=== PATIENT | male | born 1955 | race Caucasian/White ===

== ENCOUNTER 2017-10-26 05:02 | Emergency (ER) | payer MEDICAID ==
[2017-10-26 05:03] VITALS: BMI 43.8
[2017-10-26 05:16] VITALS: RESP 18; TEMP 97.5
--- NOTE | 2017-10-26 05:50 | ED PDOC ---
Arrival/HPI - General Chief Complaint: High Blood Pressure Time Seen by Provider: 10/26/17 05:25 Historian: Patient - History of Present Illness Narrative History of Present Illness (Text): 10/26/17 05:45 61 year old male, whose past medical history includes hypertension, presents to the Emergency department complaining of elevated blood pressure noted this am. Patient states he noted when taking his blood pressure that it was elevated ~ 180 systolic. Patient is on Lisinpril medication which he had subsequently taken this time a few hrs earlier than he normally does. Patient denies any fevers, chills, chest pain, shortness of breath, abdominal pain, nausea, vomiting, diarrhea, back pain, neck pain, urinary/bowel changes, headache, dizziness, or any other complaint. Time/Duration: Other (this evening) Symptom Onset: Sudden Symptom Course: Unchanged Context: Home Past Medical History - Provider Review Nursing Documentation Reviewed: Yes - Infectious Disease Hx of Infectious Diseases: None - Tetanus Immunization Tetanus Immunization: Unknown - Past Medical History Past Medical History: No Previous - Cardiac Hx Cardiac Disorders: Yes Hx Hypertension: Yes - Pulmonary Hx Respiratory Disorders: No - Neurological Hx Neurological Disorder: No - HEENT Hx HEENT Disorder: No - Renal Hx Renal Disorder: No - Endocrine/Metabolic Hx Endocrine Disorders: No - Hematological/Oncological Hx Blood Disorders: No - Integumentary Hx Dermatological Disorder: No - Musculoskeletal/Rheumatological Hx Musculoskeletal Disorders: No Hx Falls: No - Gastrointestinal Hx Gastrointestinal Disorders: No - Genitourinary/Gynecological Hx Genitourinary Disorders: No - Psychiatric Hx Psychophysiologic Disorder: No Hx Depression: No Hx Emotional Abuse: No Hx Physical Abuse: No Hx Substance Use: No - Surgical History Hx Appendectomy: Yes Other/Comment: hernia repair - Anesthesia Hx Anesthesia: Yes Hx Anesthesia Reactions: No Hx Malignant Hyperthermia: No - Suicidal Assessment Feels Threatened In Home Enviroment: No Family/Social History - Physician Review Nursing Documentation Reviewed: Yes Family/Social History: No Known Family HX Smoking Status: Former Smoker Hx Alcohol Use: No Hx Substance Use: No Hx Substance Use Treatment: No Allergies/Home Meds Allergies/Adverse Reactions: Allergies No Known Allergies Allergy (Verified 01/18/17 15:05) Home Medications: Home Meds Medication Instructions Recorded Confirmed Lisinopril [Zestril] 10 mg PO DAILY 10/24/15 01/28/18 Aspirin [Aspirin Chewable] 81 mg PO DAILY 06/29/16 10/26/17 Review of Systems - Physician Review All systems were reviewed & negative as marked: Yes - Review of Systems Constitutional: absent: Fevers, Other (Chills) Respiratory: absent: SOB Cardiovascular: absent: Chest Pain Gastrointestinal: absent: Abdominal Pain, Diarrhea, Nausea, Vomiting Genitourinary Male: absent: Dysuria, Frequency, Hematuria Musculoskeletal: absent: Back Pain, Neck Pain Neurological: absent: Headache, Dizziness Physical Exam Vital Signs Reviewed: Yes Vital Signs Temp Pulse Resp BP Pulse Ox 10/26/17 06:25 63 18 150/85 97 10/26/17 05:54 162/108 H 10/26/17 05:16 97.5 F L 65 18 162/108 H 98 Temperature: Afebrile Blood Pressure: Hypertensive Pulse: Regular Respiratory Rate: Normal Appearance: Positive for: Well-Appearing, Non-Toxic, Comfortable Pain Distress: None Mental Status: Positive for: Alert and Oriented X 3 - Systems Exam Head: Present: Atraumatic, Normocephalic Pupils: Present: PERRL Extroacular Muscles: Present: EOMI Conjunctiva: Present: Normal Mouth: Present: Moist Mucous Membranes Neck: Present: Normal Range of Motion Respiratory/Chest: Present: Clear to Auscultation, Good Air Exchange. No: Respiratory Distress, Accessory Muscle Use Cardiovascular: Present: Regular Rate and Rhythm, Normal S1, S2. No: Murmurs Abdomen: Present: Normal Bowel Sounds. No: Tenderness, Distention, Peritoneal Signs Back: Present: Normal Inspection Upper Extremity: Present: Normal Inspection. No: Cyanosis, Edema Lower Extremity: Present: Normal Inspection. No: Edema Neurological: Present: GCS=15, CN II-XII Intact, Speech Normal Skin: Present: Warm, Dry, Normal Color. No: Rashes Psychiatric: Present: Alert, Oriented x 3, Normal Insight, Normal Concentration Medical Decision Making ED Course and Treatment: 10/26/17 05:46 Impression: 61 year old male presents complaining of elevated blood pressure. Plan: -- Catapres -- Reassess and disposition - Medication Orders Current Medication Orders: Discontinued Medications Clonidine HCl (Catapres) 0.2 mg PO STAT STA Stop: 10/26/17 05:47 Last Admin: 10/26/17 05:54 Dose: 0.2 mg MAR Pulse and Blood Pressure Document 10/26/17 05:54 PAUL (Rec: 10/26/17 05:54 [facility] [id number]) Blood Pressure Blood Pressure (100/60-150/90 mm Hg) 162/108 - Scribe Statement The provider has reviewed the documentation as recorded by the Abidaibe Day Aleman Provider Scribe Attestation: All medical record entries made by the Scribe were at my direction and personally dictated by me. I have reviewed the chart and agree that the record accurately reflects my personal performance of the history, physical exam, medical decision making, and the department course for this patient. I have also personally directed, reviewed, and agree with the discharge instructions and disposition. Disposition/Present on Arrival - Present on Arrival Any Indicators Present on Arrival: No History of DVT/PE: No History of Uncontrolled Diabetes: No Urinary Catheter: No History of Decub. Ulcer: No History Surgical Site Infection Following: None - Disposition Have Diagnosis and Disposition been Completed?: Yes Diagnosis: Chronic hypertension Disposition: HOME/ ROUTINE Disposition Time: 06:30 Patient Plan: Discharge Condition: GOOD Discharge Instructions (ExitCare): Chronic Hypertension (ED) Additional Instructions: Take your medication as prescribed/follow up with your doctor this week /if any symptoms(headache/dizziness/persistent elevated blood pressure/ecc.)return to the emergency room Forms: [employer] (Paraguayan)
[2017-10-26 06:26] VITALS: BP 150/85; PULSE 63; O2SAT 97
== END 2017-10-26 06:42 | disposition home or self-care (01) ==
LOC: ED 05:02
DX: I10 Essential (primary) hypertension (principal); Z87.891 Personal history of nicotine dependence

== ENCOUNTER 2018-03-17 20:37 | Emergency (ER) | payer SELFPAY ==
[2018-03-17 21:12] VITALS: BMI 39.1
[2018-03-17 21:17] VITALS: BP 138/91; PULSE 76; RESP 19; TEMP 98.2; O2SAT 96
[2018-03-17] MEDS: Tetracaine 0.5% Ophth 2 ML BOTTLE OS STA (21:33)
--- NOTE | 2018-03-17 21:36 | ED PDOC ---
Arrival/HPI - General Chief Complaint: Eye Problem Time Seen by Provider: 03/17/18 21:33 Historian: Patient - History of Present Illness Narrative History of Present Illness (Text): 03/17/18 21:34 62yo male who present with complaint of right eye pain, tearing, redness. States it felt like something went into his right eye, while waiting at a bus stop. States the eye feels irritated. He denies visual acuity changes, photophobia, any other complaint. Past Medical History - Provider Review Nursing Documentation Reviewed: Yes - Infectious Disease Hx of Infectious Diseases: None - Tetanus Immunization Tetanus Immunization: Unknown - Past Medical History Past Medical History: No Previous - Cardiac Hx Cardiac Disorders: Yes Hx Hypertension: Yes - Pulmonary Hx Respiratory Disorders: No - Neurological Hx Neurological Disorder: No - HEENT Hx HEENT Disorder: No - Renal Hx Renal Disorder: No - Endocrine/Metabolic Hx Endocrine Disorders: No - Hematological/Oncological Hx Blood Disorders: No - Integumentary Hx Dermatological Disorder: No - Musculoskeletal/Rheumatological Hx Musculoskeletal Disorders: No Hx Falls: No - Gastrointestinal Hx Gastrointestinal Disorders: No - Genitourinary/Gynecological Hx Genitourinary Disorders: No - Psychiatric Hx Psychophysiologic Disorder: No Hx Substance Use: No - Surgical History Hx Appendectomy: Yes Other/Comment: hernia repair - Anesthesia Hx Anesthesia: Yes Hx Anesthesia Reactions: No Hx Malignant Hyperthermia: No - Suicidal Assessment Feels Threatened In Home Enviroment: No Family/Social History - Physician Review Nursing Documentation Reviewed: Yes Family/Social History: Unknown Family HX Smoking Status: Former Smoker Hx Alcohol Use: No Hx Substance Use: No Hx Substance Use Treatment: No Allergies/Home Meds Allergies/Adverse Reactions: Allergies Penicillins Allergy (Verified 03/17/18 21:12) RASH Home Medications: Home Meds Medication Instructions Recorded Confirmed Lisinopril [Zestril] 10 mg PO DAILY 07/22/15 03/17/18 Aspirin [Aspirin Chewable] 81 mg PO DAILY 06/29/16 03/17/18 Review of Systems - Physician Review All systems were reviewed & negative as marked: Yes - Review of Systems Constitutional: Normal Eyes: Eye Pain (right eye) ENT: Normal Respiratory: Normal Cardiovascular: Normal Gastrointestinal: Normal Genitourinary Male: Normal Musculoskeletal: Normal Skin: Normal Neurological: Normal Endocrine: Normal Hemo/Lymphatic: Normal Psychiatric: Normal Physical Exam Vital Signs Reviewed: Yes Vital Signs Temp Pulse Resp BP Pulse Ox 03/17/18 21:16 98.2 F 76 19 138/91 H 96 Temperature: Afebrile Blood Pressure: Normal Pulse: Regular Respiratory Rate: Normal Appearance: Positive for: Well-Appearing, Non-Toxic, Comfortable Pain Distress: None Mental Status: Positive for: Alert and Oriented X 3 - Systems Exam Head: Present: Atraumatic, Normocephalic Pupils: Present: PERRL Extroacular Muscles: Present: EOMI Conjunctiva: Present: Icteric (Pinkish right conjunctiva), Other (No florescin uptake) Mouth: Present: Moist Mucous Membranes Neck: Present: Normal Range of Motion Respiratory/Chest: Present: Clear to Auscultation, Good Air Exchange. No: Respiratory Distress, Accessory Muscle Use Cardiovascular: Present: Regular Rate and Rhythm, Normal S1, S2. No: Murmurs Abdomen: No: Tenderness, Distention, Peritoneal Signs Back: Present: Normal Inspection Upper Extremity: Present: Normal Inspection. No: Cyanosis, Edema Lower Extremity: Present: Normal Inspection. No: Edema Neurological: Present: GCS=15, CN II-XII Intact, Speech Normal Skin: Present: Warm, Dry, Normal Color. No: Rashes Psychiatric: Present: Alert, Oriented x 3, Normal Insight, Normal Concentration Medical Decision Making - Medication Orders Current Medication Orders: Discontinued Medications Tetracaine HCl (Tetracaine 0.5% Ophth Soln) 2 drop OS STAT STA Stop: 03/17/18 21:34 Disposition/Present on Arrival - Present on Arrival Any Indicators Present on Arrival: No History of DVT/PE: No History of Uncontrolled Diabetes: No Urinary Catheter: No History of Decub. Ulcer: No History Surgical Site Infection Following: None - Disposition Have Diagnosis and Disposition been Completed?: Yes Diagnosis: Eye irritation Disposition: HOME/ ROUTINE Disposition Time: 21:50 Patient Plan: Discharge Condition: STABLE Discharge Instructions (ExitCare): Conjunctivitis (Noninfectious Pinkeye) Additional Instructions: Follow up with your doctor/Molding Machine Setter Return to ED for any new or worsening symptoms Prescriptions: Tobramycin 0.3% [Tobrex 0.3% Ophth Soln] 2 drop OD Q3 #1 bottle Referrals: Jeoy Kapoor MD [Staff Provider] - Follow up with primary Forms: [employer] (Romanian)
== END 2018-03-17 21:49 | disposition home or self-care (01) ==
LOC: ED 20:37
DX: H57.8 Other specified disorders of eye and adnexa (principal)

== ENCOUNTER 2018-07-14 08:44 | Emergency (ER) | payer SELFPAY ==
[2018-07-14 08:45] VITALS: BMI 39.1
[2018-07-14 08:56] VITALS: RESP 18; TEMP 98; O2SAT 97
--- NOTE | 2018-07-14 09:24 | ED PDOC ---
Arrival/HPI - History of Present Illness Narrative History of Present Illness (Text): 07/14/18 09:16 Pt is a 62 yo M with pmhx of HTN who presents for R headache and HTN. Pt states that this AM his BP was 185/110 recorded at home. He also noticed a headache which he has been having since Friday and also states that it is related to the flu symptoms that he has been having since last week. He states that he had a similar episode last year when he also had the flu and then proceeded to have a bad headache. She states that he is compliant with his BP medications and took a dose this AM before coming to the ED. He states that the pain is 10/10 in intensity that is non-radiating. He denies any numbness, tingling, focal weakness, chest pain, SOB, cough, abd pain. He does admit to headache, photophobia, nausea, dry cough, and dizziness. Pmhx: HTN Pshx: Appendectomy, hernia repair Meds: Lisinopril 40, ASA 81 All: Penicillin - dizzy, nausea Social: Denies tobacco use quit >20 years ago, denies etoh or drug abuse Fam: Denies Time/Duration: 1-3 hours Symptom Onset: Gradual Symptom Course: Improving Severity Level: 10 <Yuliana Gutierres - Last Filed: 07/14/18 14:18> - General Historian: Patient <Radha Selfil - Last Filed: 07/14/18 16:20> - General Time Seen by Provider: 07/14/18 08:46 Past Medical History - Provider Review Nursing Documentation Reviewed: Yes - Infectious Disease Hx of Infectious Diseases: None - Tetanus Immunization Tetanus Immunization: Unknown - Past Medical History Past Medical History: No Previous - Cardiac Hx Cardiac Disorders: Yes Hx Hypertension: Yes - Pulmonary Hx Respiratory Disorders: No - Neurological Hx Neurological Disorder: No - HEENT Hx HEENT Disorder: No - Renal Hx Renal Disorder: No - Endocrine/Metabolic Hx Endocrine Disorders: No - Hematological/Oncological Hx Blood Disorders: No - Integumentary Hx Dermatological Disorder: No - Musculoskeletal/Rheumatological Hx Musculoskeletal Disorders: No Hx Falls: No - Gastrointestinal Hx Gastrointestinal Disorders: No - Genitourinary/Gynecological Hx Genitourinary Disorders: No - Psychiatric Hx Psychophysiologic Disorder: No Hx Substance Use: No - Surgical History Hx Appendectomy: Yes Other/Comment: hernia repair - Anesthesia Hx Anesthesia: Yes Hx Anesthesia Reactions: No Hx Malignant Hyperthermia: No - Suicidal Assessment Feels Threatened In Home Enviroment: No <Yuliana Gutierres - Last Filed: 07/14/18 14:18> Family/Social History - Physician Review Nursing Documentation Reviewed: Yes Family/Social History: Unknown Family HX Smoking Status: Former Smoker Hx Alcohol Use: No Hx Substance Use: No Hx Substance Use Treatment: No <Abraham Gutierresmad - Last Filed: 07/14/18 14:18> Allergies/Home Meds <Minesh Gutierresd - Last Filed: 07/14/18 14:18> <Albert Self - Last Filed: 07/14/18 16:20> Allergies/Adverse Reactions: Allergies Penicillins Allergy (Verified 03/17/18 21:12) RASH Home Medications: Home Meds Medication Instructions Recorded Confirmed RX: Lisinopril [Zestril] 10 mg PO DAILY 07/22/15 03/17/18 RX: Aspirin [Aspirin Chewable] 81 mg PO DAILY 06/29/16 03/17/18 Review of Systems - Physician Review All systems were reviewed & negative as marked: Yes - Review of Systems Eyes: absent: Vision Changes, Photophobia ENT: absent: Hearing Changes, Tinnitus Respiratory: absent: SOB, Cough Cardiovascular: absent: Chest Pain Gastrointestinal: absent: Abdominal Pain, Nausea, Vomiting Neurological: absent: Headache, Dizziness, Speech Changes, Facial Droop, Disequilibrium <Yuliana Gutierres - Last Filed: 07/14/18 14:18> Physical Exam Vital Signs Reviewed: Yes Vital Signs Temp Pulse Resp BP Pulse Ox 07/14/18 08:45 98 F 58 L 18 127/78 97 Temperature: Afebrile Blood Pressure: Normal Pulse: Bradycardic (@ 58) Respiratory Rate: Normal Appearance: Positive for: Well-Appearing, Non-Toxic Pain Distress: Mild Mental Status: Positive for: Alert and Oriented X 3 - Systems Exam Head: Present: Atraumatic, Normocephalic Pupils: Present: PERRL Extroacular Muscles: Present: EOMI Mouth: Present: Moist Mucous Membranes Neck: Present: Normal Range of Motion. No: Meningeal Signs, MIDLINE TENDERNESS, Paraspinal Tenderness Respiratory/Chest: Present: Clear to Auscultation, Good Air Exchange. No: Respiratory Distress, Accessory Muscle Use, Wheezes, Rales, Rhonchi Cardiovascular: Present: Regular Rate and Rhythm, Normal S1, S2. No: Murmurs, Rub, Gallop Abdomen: Present: Normal Bowel Sounds. No: Tenderness, Distention, Peritoneal Signs, Rebound, Guarding Neurological: Present: GCS=15, CN II-XII Intact, Speech Normal (No facial droop), Motor Func Grossly Intact, Normal Sensory Function Skin: Present: Warm, Dry, Normal Color. No: Rashes Psychiatric: Present: Alert, Oriented x 3, Normal Insight, Normal Concentration, Normal Affect, Normal Mood <Yuliana Gutierres - Last Filed: 07/14/18 14:18> Vital Signs Temp Pulse Resp BP Pulse Ox 07/14/18 10:00 55 L 18 147/99 H 97 07/14/18 08:45 98 F 58 L 18 127/78 97 <Albert Self - Last Filed: 07/14/18 16:20> Medical Decision Making ED Course and Treatment: 07/14/18 09:26 Pt is a 62 yo M with pmhx detailed above who presents for headache and elevated BP. - BP in ER is normotensive - CBC - CMP - CT head w/o contrast 07/14/18 12:45 - Pt was reassessed at bedside. He states that there is some improvement of the headache. Informed the pt that the head CT reported by radiologist: No acute intracranial pathology. Expresses interest in going home. Encouraged pt to f/u with PMD and to return to ED if symptoms worsen or if new symptoms begin. - RAD Interpretation Radiology Orders: 07/14/18 09:08 HEAD W/O CONTRAST [CT] Stat <Yuliana Gutierres - Last Filed: 07/14/18 14:18> ED Course and Treatment: 07/14/18 09:30 Impression: 62 year old male presents to the emergency department for R headache and elevated HTN. Patient Seen with Resident: In agreement with resident note which contains more details about the patient. Patient seen and evaluated with resident. Came up with plan and treatment together. slade, neuro intact. b/p improved. no thunderclap features imagign neg. pain resolved. asking for dc. Prior Visits: Notes and results from previous visits were reviewed. Patient was last seen in the emergency department on 03/17/18 with complaint of right eye pain, tearing and redness. Patient was discharged home in stable condition and directed to follow up with her doctor/Opthalmologist, with diagnosis of eye irritation. Progress Notes: 07/14/18 16:20 - Lab Interpretations Lab Results: 07/14/18 09:30 07/14/18 09:30 Lab Results 07/14/18 09:30: Sodium 137, Potassium 4.2, Chloride 103, Carbon Dioxide 28, Anion Gap 10, BUN 16, Creatinine 0.7 L, Est GFR ( Amer) > 60, Est GFR (Non-Af Amer) > 60, Random Glucose 101, Calcium 8.7, Total Bilirubin 0.5, AST 24, ALT 29, Alkaline Phosphatase 57, Total Protein 7.4, Albumin 4.0, Globulin 3.4, Albumin/Globulin Ratio 1.2 07/14/18 09:30: PT 12.3, INR 1.07, APTT 30.9 07/14/18 09:30: WBC 6.4, RBC 5.41, Hgb 15.3, Hct 45.8, MCV 84.7, MCH 28.3, MCHC 33.4, RDW 13.1, Plt Count 218, MPV 10.6, Gran % 57.4, Lymph % (Auto) 27.1, [place] % (Auto) 10.0 H, Eos % (Auto) 4.4, Baso % (Auto) 1.1, Gran # 3.68, Lymph # (Auto) 1.7, [place] # (Auto) 0.6, Eos # (Auto) 0.3, Baso # (Auto) 0.07 - RAD Interpretation Narrative RAD Interpretations (Text): CT of head reviewed by radiologist, shows: Dictator : Niyah Cummings MD Report Date : 07/14/2018 10:00:13 FINDINGS: HEMORRHAGE: No intracranial hemorrhage. BRAIN: Land-white matter differentiation is preserved. There is no mass, mass effect or abnormal extra-axial fluid collection. There is no territorial infarction. The midline sagittal structures are normal. VENTRICLES: There is mild age-related global parenchymal volume loss and proportionate enlargement of the ventricles and cortical sulci. CALVARIUM: There is no calvarial fracture or extracranial soft tissue swelling. PARANASAL SINUSES: Predominantly clear. MASTOID AIR CELLS: Predominantly clear. OTHER FINDINGS: None. IMPRESSION: No acute intracranial abnormality. Radiology Orders: 07/14/18 09:08 HEAD W/O CONTRAST [CT] Stat Straight Truck Driver: Radiologist - Medication Orders Current Medication Orders: Discontinued Medications Acetaminophen (Tylenol 325mg Tab) 975 mg PO STAT STA Stop: 07/14/18 09:24 Last Admin: 07/14/18 10:46 Dose: 975 mg <Albert Self - Last Filed: 07/14/18 16:20> - PA / MANAGER STAFFING / Resident Statement MD/DO has reviewed & agrees with the documentation as recorded. MD/DO has examined the patient and agrees with the treatment plan. - Scribe Statement The provider has reviewed the documentation as recorded by the Scribe Lori Tomas All medical record entries made by the Scribe were at my direction and personally dictated by me. I have reviewed the chart and agree that the record accurately reflects my personal performance of the history, physical exam, medical decision making, and the department course for this patient. I have also personally directed, reviewed, and agree with the discharge instructions and disposition. <Albert Self - Last Filed: 07/14/18 16:20> Disposition/Present on Arrival - Present on Arrival Any Indicators Present on Arrival: No History of DVT/PE: No History of Uncontrolled Diabetes: No Urinary Catheter: No History of Decub. Ulcer: No History Surgical Site Infection Following: None - Disposition Have Diagnosis and Disposition been Completed?: Yes Disposition Time: 12:45 Patient Plan: Discharge <Yuliana Gutierres - Last Filed: 07/14/18 14:18> <Albert Self - Last Filed: 07/14/18 16:20> - Disposition Diagnosis: Headache, HTN (hypertension) Disposition: HOME/ ROUTINE Condition: GOOD Discharge Instructions (ExitCare): Tension Headache, High Blood Pressure (DC) Additional Instructions: CONSUELO VILCHIS, thank you for letting us take care of you today. Your provider was Dr. Self and you were treated for HYPERTENSION HEADACHE. The emergency medical care you received today was directed at your acute symptoms. If you were prescribed any medication, please fill it and take as directed. It may take several days for your symptoms to resolve. Return to the Emergency Department if your symptoms worsen, do not improve, or if you have any other problems. Please contact your primary care doctor for a follow up appointment within this week. Bring any paperwork you were given at discharge with you along with any medications you are taking to your follow up visit. Our treatment cannot replace ongoing medical care by a primary care provider outside of the emergency department. Thank you for allowing the [facility] team to be part of your care today. Forms: [employer] (Sao Tomean)
[2018-07-14 09:34] LABS: BASO # 0.07 K/mm3 (0.0-2.0); BASO % 1.1 % (0.0-3.0); EOS # 0.3 (0.0-0.7); EOS % 4.4 % (1.5-5.0); GRAN # 3.68 (1.4-6.5); GRAN % 57.4 % (50.0-68.0); HEMOGLOBIN 15.3 g/dL (14.0-18.0); LYMPH # 1.7 (1.2-3.4); LYMPH % 27.1 % (22.0-35.0); MEAN CELL VOLUME 84.7 fl (80.0-105.0); MEAN CORPUSCULAR HEMOGLOBIN 28.3 pg (25.0-35.0); MEAN CORPUSCULAR HGB CONC 33.4 g/dl (31.0-37.0); MEAN PLATELET VOLUME 10.6 fl (7.0-11.0); MONO # 0.6 (0.1-0.6); RBC 5.41 10^6/uL (3.5-6.1); RED CELL DISTRIBUTION WIDTH 13.1 % (11.5-14.5); WHITE BLOOD COUNT 6.4 10^3/ul (4.5-11.0)
[2018-07-14 09:43] LABS: INR 1.07; PARTIAL THROMBOPLASTIN TIME 30.9 Seconds (25.1-36.5); PROTHROMBIN TIME 12.3 SECONDS (9.4-12.5)
[2018-07-14 09:44] LABS: ALB/GLOB RATIO 1.2 (1.1-1.8); ALT/SGPT 29 U/L (7-56); AST/SGOT 24 U/L (17-59); BLOOD UREA NITROGEN 16 mg/dL (7-21); CALCIUM 8.7 mg/dL (8.4-10.5); GFR NON-AFRICAN AMERICAN > 60
--- NOTE | 2018-07-14 10:04 | CT ---
Date of service: 07/14/2018 PROCEDURE: CT HEAD WITHOUT CONTRAST. HISTORY: Headache COMPARISON: 01/22/2015. TECHNIQUE: Axial computed tomography images were obtained through the head/brain without intravenous contrast. Radiation dose: Total exam DLP = 1010.02 mGy-cm. This CT exam was performed using one or more of the following dose reduction techniques: Automated exposure control, adjustment of the mA and/or kV according to patient size, and/or use of iterative reconstruction technique. FINDINGS: HEMORRHAGE: No intracranial hemorrhage. BRAIN: Land-white matter differentiation is preserved. There is no mass, mass effect or abnormal extra-axial fluid collection. There is no territorial infarction. The midline sagittal structures are normal. VENTRICLES: There is mild age-related global parenchymal volume loss and proportionate enlargement of the ventricles and cortical sulci. CALVARIUM: There is no calvarial fracture or extracranial soft tissue swelling. PARANASAL SINUSES: Predominantly clear. MASTOID AIR CELLS: Predominantly clear. OTHER FINDINGS: None. IMPRESSION: No acute intracranial abnormality.
[2018-07-14 12:13] VITALS: BP 146/86; PULSE 75
== END 2018-07-14 12:11 | disposition home or self-care (01) ==
LOC: ED 08:44
DX: R51 Headache (principal); I10 Essential (primary) hypertension; Z87.891 Personal history of nicotine dependence

== ENCOUNTER 2019-02-17 16:40 | Emergency (ER) | payer SELFPAY ==
[2019-02-17 16:40] VITALS: BMI 39.1
[2019-02-17 16:52] VITALS: RESP 18; TEMP 98.4
--- NOTE | 2019-02-17 17:04 | ED PDOC ---
Arrival/HPI - History of Present Illness Narrative History of Present Illness (Text): 02/17/19 16:55 63 y/o male, pmh including htn/acs, penicillin allergy, c/o rectal pain x 2 days. Pt. stated that he has rectal pain started last night, associated with straining with occasional itching, no fever or chills, no headache or night sweat, no rash, no dizziness, no change in vision, no other medical or psychological complaints. <Allen Brink - Last Filed: 02/17/19 19:50> <Jocelyn Lam - Last Filed: 02/17/19 21:00> - General Chief Complaint: GI Problem Time Seen by Provider: 02/17/19 16:55 Past Medical History - Provider Review Nursing Documentation Reviewed: Yes - Infectious Disease Hx of Infectious Diseases: None - Tetanus Immunization Tetanus Immunization: Unknown - Past Medical History Past Medical History: No Previous - Cardiac Hx Cardiac Disorders: Yes Hx Hypertension: Yes - Pulmonary Hx Respiratory Disorders: No - Neurological Hx Neurological Disorder: No - HEENT Hx HEENT Disorder: No - Renal Hx Renal Disorder: No - Endocrine/Metabolic Hx Endocrine Disorders: No - Hematological/Oncological Hx Blood Disorders: No - Integumentary Hx Dermatological Disorder: No - Musculoskeletal/Rheumatological Hx Musculoskeletal Disorders: No Hx Falls: No - Gastrointestinal Hx Gastrointestinal Disorders: No - Genitourinary/Gynecological Hx Genitourinary Disorders: No - Psychiatric Hx Psychophysiologic Disorder: No Hx Substance Use: No - Surgical History Hx Appendectomy: Yes Other/Comment: hernia repair - Anesthesia Hx Anesthesia: Yes Hx Anesthesia Reactions: No Hx Malignant Hyperthermia: No - Suicidal Assessment Feels Threatened In Home Enviroment: No <Allen Brink - Last Filed: 02/17/19 19:50> Family/Social History - Physician Review Nursing Documentation Reviewed: Yes Family/Social History: Unknown Family HX Smoking Status: Former Smoker Hx Alcohol Use: No Hx Substance Use: No Hx Substance Use Treatment: No <Allen Brink - Last Filed: 02/17/19 19:50> Allergies/Home Meds <Allen Brink - Last Filed: 02/17/19 19:50> <Jocelyn Lam - Last Filed: 02/17/19 21:00> Allergies/Adverse Reactions: Allergies Penicillins Allergy (Verified 02/17/19 16:52) RASH Home Medications: Home Meds Medication Instructions Recorded Confirmed Lisinopril [Zestril] 40 mg PO DAILY 07/22/15 02/17/19 Aspirin [Aspirin Chewable] 81 mg PO DAILY 06/29/16 02/17/19 Review of Systems - Review of Systems Constitutional: absent: Fatigue, Fevers Eyes: absent: Vision Changes ENT: absent: Hearing Changes Respiratory: absent: SOB, Cough Cardiovascular: absent: Chest Pain Gastrointestinal: Other (+rectal pain). absent: Abdominal Pain, Diarrhea, Nausea, Vomiting Musculoskeletal: absent: Arthralgias, Back Pain Skin: absent: Rash, Pruritis Psychiatric: absent: Anxiety, Depression, Suicidal Ideation <Allen Brink Q - Last Filed: 02/17/19 19:50> Physical Exam Vital Signs Reviewed: Yes Vital Signs Temp Pulse Resp BP Pulse Ox 02/17/19 16:40 98.4 F 81 18 144/98 H 96 Temperature: Afebrile Blood Pressure: Hypertensive Pulse: Regular Respiratory Rate: Normal Appearance: Positive for: Well-Appearing, Non-Toxic, Comfortable Pain Distress: Mild Mental Status: Positive for: Alert and Oriented X 3 - Systems Exam Head: Present: Atraumatic, Normocephalic Pupils: Present: PERRL Extroacular Muscles: Present: EOMI Conjunctiva: Present: Normal Mouth: Present: Moist Mucous Membranes Neck: Present: Normal Range of Motion Respiratory/Chest: Present: Clear to Auscultation, Good Air Exchange. No: Respiratory Distress, Accessory Muscle Use Cardiovascular: Present: Regular Rate and Rhythm, Normal S1, S2. No: Murmurs Abdomen: No: Tenderness, Distention, Peritoneal Signs Rectal: Present: Rectal Tenderness, Hemorrhoids (non thrombosed external), Normal Rectal Tone, Other (female mechanical integrity engineer seed cleaning managerGemisimo). No: Occult Blood, Gross Blood, Melena, Fissures, Nodule/Mass/Lesions Back: Present: Normal Inspection Upper Extremity: Present: Normal Inspection. No: Cyanosis, Edema Lower Extremity: Present: Normal Inspection. No: Edema Neurological: Present: GCS=15, CN II-XII Intact, Speech Normal Skin: Present: Warm, Dry, Normal Color. No: Rashes Psychiatric: Present: Alert, Oriented x 3, Normal Insight, Normal Concentration <Allen Brink Q - Last Filed: 02/17/19 19:50> Vital Signs Temp Pulse Resp BP Pulse Ox 02/17/19 16:40 98.4 F 81 18 144/98 H 96 <Jocelyn Lam - Last Filed: 02/17/19 21:00> Medical Decision Making ED Course and Treatment: 02/17/19 17:07 -Labs -CT pelvis -Observe and reassess 02/17/19 19:50 -Labs are non-significant -Labs discussed with the patient, he is comfortable. -CT pelvis ordered, performed, pending the reading result -Case discussed and endorsed to the incoming PA Jocelyn Lam, she would follow up on the CT result and dispo. <Allen Brink - Last Filed: 02/17/19 19:50> ED Course and Treatment: 02/17/19 20:30 On reevaluation, patient remains awake alert and oriented 3 in no acute distress, he is smiling, is cheerful and in good spirits. CT results discussed with the patient. Diagnosis of hemorrhoids discussed with him. He states that he feels comfortable going home. Advised to follow up with the clinic in 1-2 days without fail. Advised to take medication as prescribed. Return to the emergency room at any time for any new or worsening symptoms. Patient states he fully agrees with and understands discharge instructions. States that he agrees with the plan and disposition. Verbalized and repeated discharge instructions and plan. I have given the patient opportunity to ask any additional questions. - RAD Interpretation Narrative RAD Interpretations (Text): CT Pelvis: APPENDIX: No evidence of acute appendicitis on CT examination. PERITONEUM: No free fluid. No free air. LYMPH NODES: No lymphadenopathy is evident. REPRODUCTIVE: Prostate gland is moderately enlarged. VASCULATURE: No evidence of abdominal aortic aneurysm. BONES: No aggressive appearing osseous lesion. No acute osseous pathology evident. IMPRESSION: No acute pelvic abnormality. Prostate gland moderately enlarged. Clinical correlation advised. Electronically signed on February 17, 2019 8:19:05 PM EDT by: Deacon Madison M.D., Certified by [facility], Diagnostic Radiology Radiology Orders: 02/17/19 17:05 PELVIS W/IV CONTRAST ONLY [CT] Stat Vocational Teacher: Radiologist <Jocelyn Lam - Last Filed: 02/17/19 21:00> - PA / LINE THERAPIST / Resident Statement SALVADOR has reviewed & agrees with the documentation as recorded. <Allen Brink - Last Filed: 02/17/19 19:50> - PA / LINE THERAPIST / Resident Statement / has reviewed & agrees with the documentation as recorded. <Jocelyn Lam - Last Filed: 02/17/19 21:00> Disposition/Present on Arrival - Present on Arrival Any Indicators Present on Arrival: No History of DVT/PE: No History of Uncontrolled Diabetes: No Urinary Catheter: No History of Decub. Ulcer: No History Surgical Site Infection Following: None - Disposition Have Diagnosis and Disposition been Completed?: Yes Disposition Time: 17:07 <Allen Brink - Last Filed: 02/17/19 19:50> - Disposition Patient Plan: Discharge <Jocelyn Lam - Last Filed: 02/17/19 21:00> - Disposition Diagnosis: Rectal pain, Hemorrhoid Disposition: HOME/ ROUTINE Patient Problems: Current Active Problems Problem Status Onset Rectal pain Acute Hemorrhoid Acute Condition: GOOD Discharge Instructions (ExitCare): Hemorrhoids (DC) Additional Instructions: Thank you for letting us take care of you today. You were treated for rectal pain, hemorrhoids. The emergency medical care you received today was directed at your acute symptoms. If you were prescribed any medication, please fill it and take as directed. It may take several days for your symptoms to resolve. Return to the Emergency Department if your symptoms worsen, do not improve, or if you have any other problems. Please follow up with the clinic in 2 days for re-evaluation and follow up. Bring any paperwork you were given at discharge with you along with any medications you are taking to your follow up visit. Our treatment cannot replace ongoing medical care by a primary care provider (PCP) outside of the emergency department. Thank you for allowing the [facility] team to be part of your care today. If you had a CT scan: A Radiologist will review the ED reading if any change in treatment is needed we will contact you. Prescriptions: Docusate Sodium [Colace] 100 mg PO BID PRN #30 capsule PRN Reason: Constipation Hard Fat/Phenylephrine [place] [Anusol Suppository] 1 sup RC BID #28 sup Hydrocortisone 2.5% (Rectal) [Anusol-HC] 30 applic [place] BID #1 tube Referrals: [facility] at [facility] [Outside] - Follow up with primary PCP,NO [Primary Care Provider] - Follow up with primary Forms: [employer] (Estonian), WORK NOTE
[2019-02-17 18:00] LABS: BASO # 0.04 K/mm3 (0.0-2.0); BASO % 0.6 % (0.0-3.0); EOS # 0.2 (0.0-0.7); EOS % 3.3 % (1.5-5.0); HEMOGLOBIN 14.4 g/dL (14.0-18.0); LYMPH # 1.8 (1.2-3.4); LYMPH % 25.6 % (22.0-35.0); MEAN CELL VOLUME 84.4 fl (80.0-105.0); MEAN CORPUSCULAR HEMOGLOBIN 28.1 pg (25.0-35.0); MEAN CORPUSCULAR HGB CONC 33.3 g/dl (31.0-37.0); MEAN PLATELET VOLUME 10.5 fl (7.0-11.0); MONO # 0.7 (0.1-0.6); MONO % 10.5 % (1.0-6.0); RBC 5.12 10^6/uL (3.5-6.1); RED CELL DISTRIBUTION WIDTH 12.8 % (11.5-14.5)
[2019-02-17 18:13] LABS: BLOOD UREA NITROGEN 17 mg/dL (7-21); CALCIUM 8.3 mg/dL (8.4-10.5); GFR NON-AFRICAN AMERICAN > 60
[2019-02-17 21:01] VITALS: BP 169/110; PULSE 69; O2SAT 99
--- NOTE | 2019-02-18 14:29 | CT ---
Date of service: 02/17/2019 PROCEDURE: CT Pelvis with contrast HISTORY: rectal pain, r/o abscess COMPARISON: None available. TECHNIQUE: Contiguous axial images of the pelvis with contrast. Coronal and sagittal reformats generated. Contrast dose: 147 cc of Omni 350 Radiation dose: Total exam DLP = 773.35 mGy-cm. This CT exam was performed using one or more of the following dose reduction techniques: Automated exposure control, adjustment of the mA and/or kV according to patient size, and/or use of iterative reconstruction technique. FINDINGS: BLADDER: Unremarkable. No mass. REPRODUCTIVE ORGANS: Mildly enlarged prostate VISUALIZED BOWEL: Unremarkable. PERITONEUM: Unremarkable, as visualized. No free fluid. No free air. LYMPH NODES: Unremarkable. No enlarged lymph nodes. VASCULATURE: No aortic atherosclerotic calcification or mural plaque present. BONES: No fracture or focal lesion. OTHER FINDINGS: The report concurs with the preliminary [facility] report IMPRESSION: No acute findings
== END 2019-02-17 21:00 | disposition home or self-care (01) ==
LOC: ED 16:40
DX: K64.4 Residual hemorrhoidal skin tags (principal); Z87.891 Personal history of nicotine dependence; I10 Essential (primary) hypertension; Z88.0 Allergy status to penicillin
CPT/HCPCS: 72193; 80048; 85025; 99284; Q9967

== ENCOUNTER 2019-02-19 14:57 | Emergency (ER) | payer SELFPAY ==
[2019-02-19 14:58] VITALS: BMI 39.1
[2019-02-19 15:24] VITALS: RESP 18; TEMP 98.7; O2SAT 98
--- NOTE | 2019-02-19 16:17 | ED PDOC ---
Arrival/HPI - General Chief Complaint: Abnormal Skin Integrity Historian: Patient - History of Present Illness Narrative History of Present Illness (Text): 02/19/19 16:18 A 63 year old male, whose past medical history includes hypertension, presents to the ED for an abscess on his buttocks. Patient reports he was seen in this ED for same complaint 2 days ago, and was given cream which he applied with no improvement. Patient denies any fevers, chills, headache, dizziness, chest pain, shortness of breath, dyspnea on exertion, cough, abdominal pain, nausea, vomiting, diarrhea, back pain, neck pain, urinary/bowel changes, or any other complaints. Time/Duration: 1 week Symptom Onset: Gradual Symptom Course: Unchanged Activities at Onset: Light Context: Home Past Medical History - Provider Review Nursing Documentation Reviewed: Yes - Infectious Disease Hx of Infectious Diseases: None - Tetanus Immunization Tetanus Immunization: Unknown - Past Medical History Past Medical History: No Previous - Cardiac Hx Cardiac Disorders: Yes Hx Hypertension: Yes - Pulmonary Hx Respiratory Disorders: No - Neurological Hx Neurological Disorder: No - HEENT Hx HEENT Disorder: No - Renal Hx Renal Disorder: No - Endocrine/Metabolic Hx Endocrine Disorders: No - Hematological/Oncological Hx Blood Disorders: No - Integumentary Hx Dermatological Disorder: No - Musculoskeletal/Rheumatological Hx Musculoskeletal Disorders: No Hx Falls: No - Gastrointestinal Hx Gastrointestinal Disorders: No - Genitourinary/Gynecological Hx Genitourinary Disorders: No - Psychiatric Hx Psychophysiologic Disorder: No Hx Substance Use: No - Surgical History Hx Appendectomy: Yes Other/Comment: hernia repair - Anesthesia Hx Anesthesia: Yes Hx Anesthesia Reactions: No Hx Malignant Hyperthermia: No - Suicidal Assessment Feels Threatened In Home Enviroment: No Family/Social History - Physician Review Nursing Documentation Reviewed: Yes Family/Social History: No Known Family HX Smoking Status: Former Smoker Hx Alcohol Use: No Hx Substance Use: No Hx Substance Use Treatment: No Allergies/Home Meds Allergies/Adverse Reactions: Allergies Penicillins Allergy (Verified 02/19/19 15:24) RASH Home Medications: Home Meds Medication Instructions Recorded Confirmed Lisinopril [Zestril] 40 mg PO DAILY 07/22/15 02/19/19 Aspirin [Aspirin Chewable] 81 mg PO DAILY 06/29/16 02/19/19 Review of Systems - Physician Review All systems were reviewed & negative as marked: Yes - Review of Systems Constitutional: absent: Fevers Skin: Abscess (on buttocks) Physical Exam Vital Signs Reviewed: Yes Vital Signs Temp Pulse Resp BP Pulse Ox 02/19/19 15:23 98.7 F 84 18 149/98 H 98 Temperature: Afebrile Blood Pressure: Normal Pulse: Regular Respiratory Rate: Normal Appearance: Positive for: Well-Appearing, Non-Toxic, Comfortable Pain Distress: None Mental Status: Positive for: Alert and Oriented X 3 - Systems Exam Head: Present: Atraumatic, Normocephalic Pupils: Present: PERRL Extroacular Muscles: Present: EOMI Conjunctiva: Present: Normal Respiratory/Chest: Present: Clear to Auscultation, Good Air Exchange. No: Respiratory Distress, Accessory Muscle Use Cardiovascular: Present: Regular Rate and Rhythm, Normal S1, S2. No: Murmurs Skin: Present: Other (Area of fluctuance noted to left gluteal region, tender to palpation, no purulence noted.) Psychiatric: Present: Alert, Oriented x 3, Normal Insight, Normal Concentration Medical Decision Making ED Course and Treatment: 02/19/19 16:22 Impression: A 63 year old male who presents to the ED for Plan: -- Reassess and disposition Prior Visits: Notes and results from previous visits were reviewed. Patient was last seen in the emergency department on 02/17/19. Progress Notes: 02/19/19 16:32 Spoke to surgical attendant. Surgery will come down to evaluate patient. - Scribe Statement The provider has reviewed the documentation as recorded by the Petty Huang Provider Scribe Attestation: All medical record entries made by the Petty were at my direction and personally dictated by me. I have reviewed the chart and agree that the record accurately reflects my personal performance of the history, physical exam, medical decision making, and the department course for this patient. I have also personally directed, reviewed, and agree with the discharge instructions and disposition. Disposition/Present on Arrival - Present on Arrival Any Indicators Present on Arrival: No History of DVT/PE: No History of Uncontrolled Diabetes: No Urinary Catheter: No History of Decub. Ulcer: No History Surgical Site Infection Following: None - Disposition Have Diagnosis and Disposition been Completed?: Yes Diagnosis: Rectal abscess Disposition: HOME/ ROUTINE Disposition Time: 17:59 Patient Plan: Discharge Patient Problems: Current Active Problems Problem Status Onset Rectal abscess Acute Condition: STABLE Print Language: M[place]GR[place] Additional Instructions: All medical record entries made by the Scribe were at my direction and personally dictated by me. I have reviewed the chart and agree that the record accurately reflects my personal performance of the history, physical exam, medical decision making, and the department course for this patient. I have also personally directed, reviewed, and agree with the discharge instructions and disposition. Please follow up with the surgeon in 10 days Please take antibiotics as prescribed Apply warm compresses to the area Prescriptions: Clindamycin [Cleocin] 300 mg PO BID 10 Days #20 cap Referrals: Avery Deal MD [Staff Provider] - Follow up with primary Forms: [facility] (Kinyarwanda), WORK NOTE
--- NOTE | 2019-02-19 17:21 | CP.PCM.CON ---
<Triston Barreto - Last Filed: 02/20/19 02:10> History of Present Illness - History of Present Illness History of Present Illness: General Surgery Consult Note for Dr. Deal CC: Perianal abscess HPI: Patient is a 63 y.o M w/ PMHx of HTN presenting to the ED with complaint of perianal pain and abscess. Patient states that 2 days ago he was in the ER where he was evaluated for the same complaint and was discharged with instructions to apply hydrocortisone cream to the area. Patient states that he has followed instruction and has also taken antibiotics (from home) and has not seen any remission of the pain/boil. Patient currently states that he is experiencing 8/10 pain. Patient denies fevers. Patient denies chills, nausea, vomiting, diarrhea, constipation. SocHx: Currently denies smoking, alcohol, or illicit drug use. 20 pack year smoking hx. MedHx: HTN All: PCN (unknown reaction) SurgHx: Appendectomy, Hernia Repair FamHx: HTN in mother and CVD in father. Meds: Lisinopril 40mg and ASA 81mg, Vitamin D. Review of Systems - Review of Systems All systems: reviewed and no additional remarkable complaints except Past Patient History - Infectious Disease Hx of Infectious Diseases: None - Tetanus Immunizations Tetanus Immunization: Unknown - Past Social History Smoking Status: Former Smoker - CARDIAC Hx Cardiac Disorders: Yes Hx Hypertension: Yes - PULMONARY Hx Respiratory Disorders: No - NEUROLOGICAL Hx Neurological Disorder: No - HEENT Hx HEENT Problems: No - RENAL Hx Chronic Kidney Disease: No - ENDOCRINE/METABOLIC Hx Endocrine Disorders: No - HEMATOLOGICAL/ONCOLOGICAL Hx Blood Disorders: No - INTEGUMENTARY Hx Dermatological Problems: No - MUSCULOSKELETAL/RHEUMATOLOGICAL Hx Musculoskeletal Disorders: No Hx Falls: No - GASTROINTESTINAL Hx Gastrointestinal Disorders: No - GENITOURINARY/GYNECOLOGICAL Hx Genitourinary Disorders: No - PSYCHIATRIC Hx Psychophysiologic Disorder: No Hx Substance Use: No - SURGICAL HISTORY Hx Appendectomy: Yes Other/Comment: hernia repair - ANESTHESIA Hx Anesthesia: Yes Hx Anesthesia Reactions: No Hx Malignant Hyperthermia: No Meds Home Medications: Home Medication List Medication Instructions Recorded Confirmed Type Clindamycin [Cleocin] 300 mg PO BID 10 Days #20 cap 02/19/19 Rx Allergies/Adverse Reactions: Allergies Allergy/AdvReac Type Severity Reaction Status Date / Time Penicillins Allergy RASH Verified 02/19/19 15:24 Physical Exam - Constitutional Appears: Non-toxic, No Acute Distress - Head Exam Head Exam: ATRAUMATIC, NORMOCEPHALIC - Eye Exam Eye Exam: EOMI, PERRL. absent: Scleral icterus - ENT Exam ENT Exam: Mucous Membranes Moist. absent: Mucous Membranes Dry - Neck Exam Neck exam: Positive for: Full Rom - Respiratory Exam Respiratory Exam: NORMAL BREATHING PATTERN. absent: Accessory Muscle Use, Respiratory Distress - Cardiovascular Exam Cardiovascular Exam: REGULAR RHYTHM. absent: Bradycardia, Tachycardia - GI/Abdominal Exam GI & Abdominal Exam: Soft. absent: Firm, Guarding, Rebound, Tenderness - Rectal Exam Rectal Exam: absent: Black Stool, Bloody Stool, Hemorrhoids, Fecal Impaction Additional comments: raw, non-erythematous w/o palpable fluctuance, no drainage, indurated 2cm mass on left perianal area. - Extremities Exam Extremities exam: Negative for: pedal edema, tenderness - Neurological Exam Neurological exam: Alert, Oriented x3 - Psychiatric Exam Psychiatric exam: Normal Affect, Normal Mood - Skin Skin Exam: Intact, Normal Color, Warm Results - Vital Signs Recent Vital Signs: Last Vital Signs Temp 98.7 F 02/19/19 15:23 Pulse 84 02/19/19 15:23 Resp 18 02/19/19 15:23 BP 149/98 H 02/19/19 15:23 Pulse Ox 98 02/19/19 15:23 Assessment & Plan - Assessment and Plan (Free Text) Assessment: Patient is a 63M w/ PMHx of HTN presenting with left perianal abscess. Plan: - Pain control - Warm compress to area. - Will require Antibiotics - Await abscess to mature, fluctuance - Stool softeners - wants to go home Further recs discuss with Dr. Toyin Barreto, PGY3 <Avery Deal - Last Filed: 02/24/19 10:47> Results - Vital Signs Recent Vital Signs: Last Vital Signs Temp 98.7 F 02/19/19 15:23 Pulse 80 02/19/19 18:16 Resp 18 02/19/19 18:16 BP 140/92 H 02/19/19 18:16 Pulse Ox 98 02/19/19 18:16 Assessment & Plan - Assessment and Plan (Free Text) Plan: Patient was seen, evaluated and examined by me at the bedside. I agree with assessment and plan as stated in the resident's note.
[2019-02-19 18:17] VITALS: BP 140/92; PULSE 80
== END 2019-02-19 18:18 | disposition home or self-care (01) ==
LOC: ED 14:57
DX: K61.1 Rectal abscess (principal)

== ENCOUNTER 2019-02-23 15:15 | Emergency (ER) | payer SELFPAY ==
[2019-02-23 15:23] VITALS: BP 165/98; PULSE 85; RESP 18; TEMP 98.2; O2SAT 98; BMI 40.7
--- NOTE | 2019-02-23 17:51 | ED PDOC ---
Arrival/HPI - General Time Seen by Provider: 02/23/19 17:27 Historian: Patient - History of Present Illness Narrative History of Present Illness (Text): 63 y/o male with PMH of HTN presents to the ED c/o right perianal abscess x 1 week. Pt was seen on 02/17, diagnosed with hemorrhoids, and discharged home after a negative CT Pelvis with IV contrast. He was seen here again on 02/19 and discharged home on Clindamycin after surgical consult that recommended sitz baths and antibiotics. Pt reports improvement in pain since the onset of symptoms, but continues with itching. Presents today because the area began to drain yellow fluid yesterday evening. Denies fever, chills, bowel incontinence, rectal pain, abdominal pain, nausea, vomiting, dizziness, diarrhea, constipation, or any other associated symptoms. Past Medical History - Provider Review Nursing Documentation Reviewed: Yes - Infectious Disease Hx of Infectious Diseases: None - Tetanus Immunization Tetanus Immunization: Unknown - Past Medical History Past Medical History: No Previous - Cardiac Hx Cardiac Disorders: Yes Hx Hypertension: Yes - Pulmonary Hx Respiratory Disorders: No - Neurological Hx Neurological Disorder: No - HEENT Hx HEENT Disorder: No - Renal Hx Renal Disorder: No - Endocrine/Metabolic Hx Endocrine Disorders: No - Hematological/Oncological Hx Blood Disorders: No - Integumentary Hx Dermatological Disorder: No - Musculoskeletal/Rheumatological Hx Musculoskeletal Disorders: No Hx Falls: No - Gastrointestinal Hx Gastrointestinal Disorders: No - Genitourinary/Gynecological Hx Genitourinary Disorders: No - Psychiatric Hx Psychophysiologic Disorder: No Hx Substance Use: No - Surgical History Hx Appendectomy: Yes Other/Comment: hernia repair - Anesthesia Hx Anesthesia: Yes Hx Anesthesia Reactions: No Hx Malignant Hyperthermia: No - Suicidal Assessment Feels Threatened In Home Enviroment: No Family/Social History - Physician Review Nursing Documentation Reviewed: Yes Family/Social History: No Known Family HX Smoking Status: Former Smoker Hx Alcohol Use: No Hx Substance Use: No Hx Substance Use Treatment: No Allergies/Home Meds Allergies/Adverse Reactions: Allergies Penicillins Allergy (Verified 02/19/19 15:24) RASH Home Medications: Home Meds Medication Instructions Recorded Confirmed Lisinopril [Zestril] 40 mg PO DAILY 07/22/15 02/19/19 Aspirin [Aspirin Chewable] 81 mg PO DAILY 06/29/16 02/19/19 Review of Systems - Review of Systems Constitutional: Normal. absent: Fevers Eyes: Normal. absent: Vision Changes ENT: Normal. absent: Sore Throat, Sinus Congestion Respiratory: Normal. absent: SOB Cardiovascular: Normal. absent: Chest Pain, Palpitations Gastrointestinal: Other (perianal pain and drainage). absent: Abdominal Pain, Nausea, Vomiting Genitourinary Male: Normal. absent: Dysuria, Frequency Musculoskeletal: Normal. absent: Back Pain, Neck Pain Skin: Abscess (sheron rectal) Neurological: Normal. absent: Headache, Dizziness Physical Exam Vital Signs Reviewed: Yes Vital Signs Temp Pulse Resp BP Pulse Ox 02/23/19 15:20 98.2 F 85 18 165/98 H 98 Temperature: Afebrile Blood Pressure: Hypertensive Pulse: Regular Respiratory Rate: Normal Appearance: Positive for: Well-Appearing, Non-Toxic, Comfortable Pain Distress: None Mental Status: Positive for: Alert and Oriented X 3 - Systems Exam Head: Present: Atraumatic, Normocephalic Pupils: Present: PERRL Extroacular Muscles: Present: EOMI Conjunctiva: Present: Normal Mouth: Present: Moist Mucous Membranes Neck: Present: Normal Range of Motion Respiratory/Chest: Present: Clear to Auscultation, Good Air Exchange. No: Respiratory Distress, Accessory Muscle Use Cardiovascular: Present: Regular Rate and Rhythm, Normal S1, S2 Abdomen: No: Tenderness Rectal: Present: Normal Rectal Tone, Other (small area of right perianal induration with central opening draining purulent fluid; no erythema or warmth; no rectal tenderness). No: Rectal Tenderness, Gross Blood, Melena Back: Present: Normal Inspection. No: CVA Tenderness Upper Extremity: Present: Normal ROM Lower Extremity: Present: Normal Inspection, Normal ROM Neurological: Present: GCS=15, Speech Normal, Motor Func Grossly Intact, Normal Sensory Function, Gait Normal Skin: Present: Warm, Dry, Abscess (draining abscess to right perianal area) Psychiatric: Present: Alert, Oriented x 3, Normal Insight, Normal Concentration, Normal Affect, Normal Mood Medical Decision Making ED Course and Treatment: Initial Plan: * Surgical consult * Toradol * Reassess and Disposition 17:35 Spoke with assembler surgical garment Amanda who states she will come to evaluate pt in ED. 18:00 consultant [employer] and [employer]. vice president [employer] (ex ) Amanda evaluated patient at bedside and states that because the abscess is draining, there is no indication for I&D or further intervention at this time. Recommends continuing antibiotic and followup with general surgeon in 7-10 days. 18:07 On returning to room to re-evaluate patient and discuss surgical consult, patient found to have eloped from ED. Discharge instructions not discussed with patient. Disposition/Present on Arrival - Present on Arrival Any Indicators Present on Arrival: No History of DVT/PE: No History of Uncontrolled Diabetes: No Urinary Catheter: No History Surgical Site Infection Following: None - Disposition Have Diagnosis and Disposition been Completed?: No Diagnosis: Perianal abscess Disposition: ELOPEMENT - ER ONLY Disposition Time: 18:10 Condition: GUARDED Additional Instructions: Continue with cream and antibiotics as prescribed Followup with general surgeon within 7-10 days Return to ER with any new/worsening symptoms
== END 2019-02-23 19:40 | disposition left against medical advice (07) ==
LOC: ED 15:15
DX: K61.0 Anal abscess (principal)